=== PATIENT | male | born 1930 | race Caucasian/White ===

== ENCOUNTER 2018-02-16 07:52 | Day surgery (SDC) | payer OTHER, MEDICARE ==
[2018-02-15 11:19] VITALS: BMI 25.8
[2018-02-16] MEDS ORDERED: PROPOFOL 20 ML ONE ×2 (08:06)
[2018-02-16 10:55] VITALS: TEMP 97.6
[2018-02-16 10:58] VITALS: PULSE 86
[2018-02-16 11:00] VITALS: BP 101/65
--- NOTE | 2018-02-18 14:26 | PATH ---
Surgical Pathology Report Patient Name: JEFF OJEDA [facility]. Rec. #: [id number] /Age/Gender: 1930 (Age: 87) / M Account: [id number] Location: [facility] Taken: 02/16/2018 Received: 02/16/2018 Reported: 02/18/2018 Physicians: David Navarrete M.D. Specimen(s) Received LEFT COLON (50 CM) Clinical History Change in bowel habits, abdominal pain Postoperative diagnosis: Polyp Final Diagnosis LEFT COLON, POLYP, POLYPECTOMY: TUBULAR ADENOMA WITH HIGH-GRADE DYSPLASIA. THE CAUTERIZED TISSUE EDGE OF THE POLYP IS UNINVOLVED BY HIGH-GRADE DYSPLASIA. Note: Case discussed with Dr. David Navarrete on 02/17/18. Electronically Signed Kimberly Upton M.D. Gross Description Received in formalin labeled "left colon," is a 1.1 x 0.7 x 0.5 cm barcenas, polypoid portion of soft tissue. The specimen is bisected and entirely submitted in one cassette. /02/16/2018 saudi02/16/2018
== END 2018-02-16 10:15 | disposition home or self-care (01) ==
LOC: FASU-ENDO 07:52
PROVIDERS: ATTEND Internal Medicine Gastroenterology
PROC: 0DBM8ZX Excision of Descending Colon, Via Natural or Artificial Opening Endoscopic, Diagnostic (ICD-10-PCS; principal; 2018-02-16 08:46)
PROC: 3E0H8GC Introduction of Other Therapeutic Substance into Lower GI, Via Natural or Artificial Opening Endoscopic (ICD-10-PCS; 2018-02-16 08:46)
DX: D12.4 Benign neoplasm of descending colon (principal); K57.30 Diverticulosis of large intestine without perforation or abscess without bleeding; K64.4 Residual hemorrhoidal skin tags; K64.8 Other hemorrhoids; K59.00 Constipation, unspecified
CPT/HCPCS: 88305-TC

== ENCOUNTER 2019-03-01 07:44 | Day surgery (SDC) | payer OTHER, MEDICARE ==
[2019-02-23 13:41] VITALS: BMI 26.9
[2019-03-01 08:03] VITALS: TEMP 97.8
[2019-03-01] MEDS ORDERED: PROPOFOL 20 ML ONE ×2 (08:26)
[2019-03-01 10:06] VITALS: BP 117/59; PULSE 66
--- NOTE | 2019-03-03 14:20 | PATH ---
Surgical Pathology Report Patient Name: JEFF OJEDA [facility]. Rec. #: [id number] /Age/Gender: 1930 (Age: 88) / M Account: [id number] Location: [facility] Taken: 03/01/2019 Received: 03/01/2019 Reported: 03/03/2019 Physicians: David Navarrete M.D. Specimen(s) Received POLYP LEFT COLON Clinical History History of polyps Postoperative diagnosis: Diverticulosis, colon polyp Final Diagnosis LEFT COLON POLYP, POLYPECTOMY: HYPERPLASTIC POLYP. Electronically Signed Jabari Day M.D. Gross Description Received in formalin, labeled "biopsy polyp left colon" is a barcenas, irregular portion of soft tissue measuring 0.2 cm. in greatest dimension. The specimen is submitted in toto in one cassette. 03/02/2019 [facility]03/02/2019
== END 2019-03-01 10:20 | disposition home or self-care (01) ==
LOC: FASU-ENDO 07:44
PROVIDERS: ATTEND Internal Medicine Gastroenterology
PROC: 0DBM8ZX Excision of Descending Colon, Via Natural or Artificial Opening Endoscopic, Diagnostic (ICD-10-PCS; principal; 2019-03-01 08:50)
DX: Z86.010 Personal history of colon polyps (principal); K63.5 Polyp of colon; K57.30 Diverticulosis of large intestine without perforation or abscess without bleeding
CPT/HCPCS: 88305-TC

== ENCOUNTER 2019-12-11 09:26 | Day surgery (SDC) | payer OTHER, MEDICARE ==
[2019-12-08 09:23] VITALS: BMI 27.0
[2019-12-11 13:39] VITALS: TEMP 97.6
[2019-12-11 13:42] VITALS: BP 127/73; PULSE 127
--- NOTE | 2019-12-13 16:25 | PATH ---
Surgical Pathology Report Patient Name: JEFF OJEDA [facility]. Rec. #: [id number] /Age/Gender: 1930 (Age: 89) / M Account: [id number] Location: [facility] Taken: 12/11/2019 Received: 12/11/2019 Reported: 12/13/2019 Physicians: David Navarrete M.D. Specimen(s) Received A: BIOPSY SECOND PORTION DUODENUM B: BIOPSY DUODENAL BULB C: BIOPSY GASTRIC ANTRUM Clinical History Check for celiac Postoperative diagnosis: Gastritis, duodenitis, rule out celiac Final Diagnosis A. DUODENUM, SECOND PORTION, BIOPSY: DUODENAL MUCOSA WITH MODERATE TO SEVERE ACUTE AND CHRONIC DUODENITIS. SEE COMMENT. B. DUODENAL BULB, BIOPSY: DUODENAL MUCOSA WITH MARKED ACUTE AND CHRONIC DUODENITIS AND ASSOCIATED VILLOUS BLUNTING. SEE COMMENT. C. GASTRIC ANTRUM, BIOPSY: GASTRIC ANTRAL MUCOSA WITH SEVERE CHRONIC ACTIVE GASTRITIS. IMMUNOHISTOCHEMICAL STAIN FOR H. PYLORI IS POSITIVE (NUMEROUS). Comment: In view of the findings of severe gastritis in part C, findings in parts A and B are most consistent with peptic duodenitis. No intraepithelial lymphocytosis noted. No diagnostic features of celiac disease identified. Suggest clinical, endoscopic and serologic correlation. Positive and negative controls (internal if applicable) show appropriate results. Electronically Signed Anna Laird M.D. Gross Description A. Received in formalin, labeled "biopsy second portion of duodenum" are 3 barcenas, irregular portions of soft tissue ranging from 0.2-0.3 cm. in greatest dimension. The specimens are submitted in toto in one cassette. B. Received in formalin, labeled "biopsy duodenal bulb" are 3 barcenas, irregular portions of soft tissue averaging 0.3 cm. in greatest dimension. The specimens are submitted in toto in one cassette. C. Received in formalin, labeled "biopsy gastric antrum" are 3 barcenas, irregular portions of soft tissue ranging from 0.2-0.3 cm. in greatest dimension. The specimens are submitted in toto in one cassette. 12/12/2019 [place]12/12/2019
== END 2019-12-11 12:00 | disposition home or self-care (01) ==
LOC: FASU-ENDO 09:26
PROVIDERS: ATTEND Internal Medicine Gastroenterology
PROC: 0DB68ZX Excision of Stomach, Via Natural or Artificial Opening Endoscopic, Diagnostic (ICD-10-PCS; 2019-12-11)
PROC: 0DB98ZX Excision of Duodenum, Via Natural or Artificial Opening Endoscopic, Diagnostic (ICD-10-PCS; principal; 2019-12-11 11:00)
DX: Z13.810 Encounter for screening for upper gastrointestinal disorder (principal); K29.50 Unspecified chronic gastritis without bleeding; K29.80 Duodenitis without bleeding; B96.81 Helicobacter pylori [H. pylori] as the cause of diseases classified elsewhere
CPT/HCPCS: 88305-TC; 88342-TC